=== PATIENT | male | born 1980 | race Caucasian/White ===

== ENCOUNTER 2024-11-18 06:24 | Day surgery (SDC) | payer BC, SELFPAY | END 2024-11-18 08:53 | disposition home or self-care (01) | LOC: GI 06:24 | PROVIDERS: ATTENDING PHYSICIAN Internal Medicine Gastroenterology | DX: Z12.11 Encounter for screening for malignant neoplasm of colon (principal); K57.30 Diverticulosis of large intestine without perforation or abscess without bleeding; K64.0 First degree hemorrhoids; K63.5 Polyp of colon | CPT/HCPCS: 45380; 88305 ==

== ENCOUNTER → 2024-12-09 08:49 | Outpatient (REF) | payer BC, SELFPAY | LOC: DHSLP 08:49 | PROVIDERS: ATTENDING PHYSICIAN Internal Medicine | DX: G47.33 Obstructive sleep apnea (adult) (pediatric) (principal) | CPT/HCPCS: 95800 ==